=== PATIENT | male | born 1970 | race Caucasian/White ===

== ENCOUNTER 2018-05-28 09:59 | Inpatient (IN) | payer MEDICAID ==
[~2018-05-28] VITALS: Ht 172.7 cm; Wt 111.3 kg
[2018-05-28 10:06] VITALS: Ht 172.7 cm; Wt 111.3 kg
[2018-05-28 11:00] LABS: PLATELET COUNT 362 x10^3mcL (130-400); RED CELL DISTRIBUTION WIDTH 13.7 % (11.5-14.5)
[2018-05-28 11:25] LABS: ALBUMIN 2.7 g/dL (3.4-5.0); ALKALINE PHOSPHATASE 93 U/L (46-116); ALT/SGPT 15 U/L (16-63); AST/SGOT 15 U/L (15-37); BILIRUBIN TOTAL 0.2 mg/dL (0.20-1.00); C REACTIVE PROTEIN 4.4 mg/dL (<=0.9); CALCIUM 8.2 mg/dL (8.5-10.1); CARBON DIOXIDE 22.1 mmol/L (21-32); CHLORIDE SERUM 101 mmol/L (98-107); CREATININE SERUM 0.9 mg/dL (0.7-1.3); GFR1 > 60 mL/min; GLUCOSE SERUM 100 mg/dL (74-106); POTASSIUM SERUM 3.5 mmol/L (3.5-5.1); SODIUM SERUM 136 mmol/L (136-145); TOTAL PROTEIN, SERUM 6.5 g/dL (6.4-8.2)
[2018-05-28 11:50] LABS: ERYTHROCYTE SED RATE 21 mm/hr (0-15)
[2018-05-28 12:34] LABS: BAND NEUTROPHIL 3 % (0-10); SEGMENTED NEUTROPHILS 77 % (37-75)
[2018-05-28 12:35] LABS: MONOCYTE 8 % (0-7); PLATELET MORPHOLOGY PLATELETS NORMAL; rbc morphology (normal/abnorm) NORMAL (NORMAL)
[2018-05-28 14:54] VITALS: BP 155/57
[2018-05-28 16:23] LABS: MAGNESIUM 1.6 mg/dL (1.8-2.4); PHOSPHOROUS 3.9 mg/dL (2.5-4.9)
[2018-05-28 16:24] LABS: CHOLESTEROL/HDL RATIO 2.3
[2018-05-28 16:31] LABS: T3 TOTAL 1.34 ng/mL
[2018-05-28 16:32] LABS: FREE T4 0.77 ng/dL (0.76-1.46)
[2018-05-28 16:33] LABS: FREE THYROXINE INDEX 1.3 ug/dL (1.4-4.5); T4(THYROXINE) 4.3 ug/dL (4.7-13.3)
[2018-05-28 17:35] VITALS: BP 126/48
[2018-05-28 20:22] VITALS: BP 127/77
[2018-05-28 20:35] VITALS: BP 115/50
[2018-05-29 04:55] VITALS: BP 117/49
[2018-05-29 05:15] VITALS: BP 117/49
[2018-05-29 06:12] LABS: PLATELET COUNT 359 x10^3mcL (130-400); RED CELL DISTRIBUTION WIDTH 13.5 % (11.5-14.5)
[2018-05-29 06:48] LABS: CARBON DIOXIDE 27.5 mmol/L (21-32); CHLORIDE SERUM 103 mmol/L (98-107); CREATININE SERUM 0.8 mg/dL (0.7-1.3); GFR1 > 60 mL/min; GLUCOSE SERUM 93 mg/dL (74-106); POTASSIUM SERUM 3.8 mmol/L (3.5-5.1); SODIUM SERUM 136 mmol/L (136-145)
[2018-05-29 06:49] LABS: BASOPHIL % 0 % (0-2)
[2018-05-29 09:28] VITALS: BP 113/41
[2018-05-29] MEDS ORDERED: CLE150 PO (11:56)
[2018-05-29] MEDS ORDERED: HYD2.5C TOP (12:01)
[2018-05-29 12:25] VITALS: BP 127/50
[2018-05-29 14:01] VITALS: BP 127/50
== END 2018-05-29 14:57 | disposition home or self-care (01) | DRG 720 ==
LOC: ED 09:59 → DU 12:44
PROVIDERS: Emergency Medicine; Internal Medicine
DX: A41.9 Sepsis, unspecified organism (principal); E43 Unspecified severe protein-calorie malnutrition; L03.116 Cellulitis of left lower limb; L40.9 Psoriasis, unspecified; M94.0 Chondrocostal junction syndrome [Tietze]; K21.9 Gastro-esophageal reflux disease without esophagitis; F17.210 Nicotine dependence, cigarettes, uncomplicated; Z68.33 Body mass index [BMI] 33.0-33.9, adult
CPT/HCPCS: 83880; 84439; 85378; G0480; J0696; J1956; J2270; J3370; J3475; J7030; Q0092; Q0163; Q9967